=== PATIENT | female | born 1980 | race American Indian/Alaskan Native ===

== ENCOUNTER 2016-11-26 21:10 | Emergency (ER) | payer MEDICAID ==
--- NOTE | 2016-11-27 02:17 | Emergency Department Report ---
HPI - General Chief Complaint: Urogenital-Female Time Seen by Provider: 11/27/16 01:55 - HPI HPI: Room 7 The patient is a 36-year-old female presenting with a chief complaint of rash and dysuria. The patient states she's noticed diffuse pruritic rash past 3 days. The patient states for the past 2 days she's had white watery vaginal discharge. The patient has had dysuria. Patient denies fever or hematuria. Patient denies any new exposures to medications detergents or body washes. The patient states her last menstrual period occurred 2 weeks ago and was within normal limits Location: [see above] Duration: [see above] Quality: Pruritic, burning Severity: Moderate Modifying factors: [see above] Context: [see above] Mode of transportation: Unknown ED Past Medical Hx - Past Medical History Previous Medical History?: Yes Hx Asthma: Yes (inhaler /albuterol) Additional medical history: eczemia. Std. fibroid - Surgical History Past Surgical History?: Yes Additional Surgical History: tongue. D&C - Family History Family history: no significant - Social History Smoking Status: Never Smoker Substance Use Type: None - Medications Home Medications: Home Medications Medication Instructions Recorded Confirmed Last Taken Type Tablet 1 tab PO DAILY 01/15/16 01/15/16 01/14/16 09:00 History 1 Ferrous Sulfate [Feosol 325 MG tab] 325 mg PO BID #60 tablet 01/17/16 Unknown Rx Ibuprofen [Motrin 600 MG tab] 600 mg PO Q6H PRN #40 tablet 01/17/16 Unknown Rx Nystatin Oint [Mycostatin Oint] 1 applicatio TP BID #15 gm 11/27/16 Unknown Rx Phenazopyridine [Pyridium] 200 mg PO TID #6 tab 11/27/16 Unknown Rx Prednisone [predniSONE 10 mg 10 mg PO .TAPER #1 tab.ds.pk 11/27/16 Unknown Rx (6-Day Pack, 21 Tabs)] metroNIDAZOLE [Flagyl] 500 mg PO Q12HR #14 tab 11/27/16 Unknown Rx ED Review of Systems ROS: Stated complaint: VAGINAL PAIN W/BURING/DIFFICULTY URINATING Other details as noted in HPI Comment: All other systems reviewed and negative Constitutional: denies: chills, fever Eyes: denies: eye pain, eye discharge, vision change ENT: denies: ear pain, throat pain Respiratory: denies: cough, shortness of breath, wheezing Cardiovascular: denies: chest pain, palpitations Endocrine: no symptoms reported Gastrointestinal: denies: abdominal pain, nausea, diarrhea Genitourinary: dysuria, discharge. denies: hematuria, abnormal menses Musculoskeletal: denies: back pain, joint swelling, arthralgia Skin: denies: rash, lesions Neurological: denies: headache, weakness, paresthesias Psychiatric: denies: anxiety, depression Hematological/Lymphatic: denies: easy bleeding, easy bruising Physical Exam - Physical Exam Vital Signs: Vital Signs 11/26/16 21:55 Temperature 98.1 F Pulse Rate 77 Respiratory 18 Rate Blood Pressure 118/73 O2 Sat by Pulse 100 Oximetry Physical Exam: GENERAL: The patient is well-developed well-nourished female lying on stretcher not appearing to be in acute distress. [] HEENT: Normocephalic. Atraumatic. Extraocular motions are intact. Patient has moist mucous membranes. NECK: Supple. No meningitic signs are noted. Trachea midline CHEST/LUNGS: Clear to auscultation. There is no respiratory distress noted. HEART/CARDIOVASCULAR: Regular. There is no tachycardia. There is no gallop rub or murmur. ABDOMEN: Abdomen is soft, nontender. Patient has normal bowel sounds. There is no abdominal distention. SKIN: There is a pruritic rash under the breasts bilaterally consistent with intertriginous candidiasis. There is no edema. There is no diaphoresis. NEURO: The patient is awake, alert, and oriented. The patient is cooperative. The patient has normal speech MUSCULOSKELETAL: There is no evidence of acute injury. PELVIC: No cervical lesions seen. No cervical motion tenderness. There is a serous green discharge present in the vault ED Course Vital Signs 11/26/16 21:55 Temperature 98.1 F Pulse Rate 77 Respiratory 18 Rate Blood Pressure 118/73 O2 Sat by Pulse 100 Oximetry ED Medical Decision Making - Lab Data Laboratory Tests 11/27/16 02:33 Urine Color Yellow Urine Turbidity Clear Urine pH 5.0 Ur Specific [place] 1.028 Urine Protein <15 mg/dl Urine Glucose (UA) Neg Urine Ketones Tr Urine Blood Neg Urine Nitrite Neg Urine Bilirubin Neg Urine Urobilinogen < 2.0 Ur Leukocyte Esterase Lg Urine WBC (Auto) 4.0 Urine RBC (Auto) 3.0 U Epithel Cells (Auto) 2.0 Urine Bacteria (Auto) 1+ Urine Mucus 2+ Urine HCG, Qual Negative Wet prep-no yeast or Trichomonas. Greater than 20% clue cells - Differential Diagnosis bacterial vaginosis, urethritis, UTI, Trichomonas vaginalis, scabies, atopi Critical care attestation.: If time is entered above; I have spent that time in minutes in the direct care of this critically ill patient, excluding procedure time. ED Disposition Clinical Impression: Bacterial vaginosis, Intertriginous candidiasis, Dysuria Disposition: DISCHARGED TO HOME OR SELFCARE Is pt being admited?: No Does the pt Need Aspirin: No Condition: Stable Instructions: Bacterial Vaginosis (ED) Additional Instructions: Return to the emergency department immediately should you develop worsening symptoms, fever, inability to tolerate food or liquid or any other concerns. Prescriptions: metroNIDAZOLE [Flagyl] 500 mg PO Q12HR #14 tab Nystatin Oint [Mycostatin Oint] 1 applicatio TP BID #15 gm Phenazopyridine [Pyridium] 200 mg PO TID #6 tab Prednisone [predniSONE 10 mg (6-Day Pack, 21 Tabs)] 10 mg PO .TAPER #1 tab.ds.pk Referrals: PRIMARY CARE, [Primary Care Provider] - 3-5 Days Forms: STI Treatment and Prevention Time of Disposition: 03:15
[2016-11-27 03:03] LABS: Bacteria,Urine 1+ /HPF (Negative); Bilirubin,Urine NEG (Negative); Blood,Urine NEG (Negative); Ketones,Urine TR mg/dL (Negative); Leukocyte Esterase,Urine LG (Negative); Mucus,Urine 2+ /HPF; Nitrite,Urine NEG (Negative); Protein,Urine <15 mg/dL mg/dL (Negative); Urobilinogen,Urine < 2.0 mg/dL (<2.0)
[2016-11-27] MEDS ORDERED: ROCEPHIN IM ONE (03:10)
[2016-11-27] MEDS ORDERED: XYLOCAINE 1% MPF 5 mL INFILTRATI ONE (03:10)
[2016-11-27] MEDS ORDERED: ZITHROMAX PO ONE (03:10)
[2016-11-27 03:38] VITALS: BP 113/72
== END 2016-11-27 03:43 | disposition home or self-care (01) ==
LOC: ED 21:10
DX: N76.0 Acute vaginitis (principal); B37.2 Candidiasis of skin and nail; R30.0 Dysuria; J45.909 Unspecified asthma, uncomplicated
CPT/HCPCS: 81001; 81025; 87210; 87591; 96372; 99284; J0696

== ENCOUNTER 2017-08-14 15:16 | Emergency (ER) | payer MEDICAID ==
[2017-08-14] MEDS ORDERED: DUONEB *Not for PRN Use IH ONE ×2 (18:41→18:44)
[2017-08-14] MEDS ORDERED: XOPENEX IH ONE (22:53)
[2017-08-14] MEDS ORDERED: ZITHROMAX PO ONE (22:53)
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
[2017-08-15 06:05] VITALS: BP 100/54
== END 2017-08-15 00:26 | disposition home or self-care (01) ==
LOC: ED 15:16
DX: J45.41 Moderate persistent asthma with (acute) exacerbation (principal); Z91.018 Allergy to other foods; Z88.8 Allergy status to other drugs, medicaments and biological substances
CPT/HCPCS: 94640; 96372; 99283; J2930